=== PATIENT | female | born 1980 | race Caucasian/White ===

== ENCOUNTER 2016-12-25 19:07 | Inpatient (IN) | payer OTHER ==
[2016-12-25 19:31] VITALS: BMI 38.7
--- NOTE | 2016-12-25 19:47 | PDOC ---
History of Present Illness - General History Source: Patient Exam Limitations: No Limitations - History of Present Illness Initial Comments: 12/25/16 19:59 The patient is a 36 year old female with significant past medical history of DVT and PCOS who presents to the ED with a week of left leg pain. Patient describes pain as soreness and tightness. She states her pain initially began as muscle tightness near the buttocks and radiated down to the inner thigh of her left leg. She denies any trauma to the area, falling, or strenuous physical activity. Patient has a h/o of DVT x2, last DVT was last year. 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 She is on heparin 10,000 units BID. She states her symptoms are consistent with her previous DVT in the past. Patient denies diaphoresis, lightheadedness, chest pain, SOB, leg swelling, jaw pain, shoulder pain, arm pain, nausea, and vomiting. Patient gave 1 month ago and is currently breast feeding. The patient denies fever, chills, cough, abdominal pain and diarrhea. Allergies: NKDA Social History: No alcohol, tobacco, or drug use reported. Past Surgical History: None reported PROFESSOR/NURSE ANESTHETIST: Dr. Barroso Military Source Operations Specialist: Dr. Miles in [employer] <Mindi Mclaughlin - Last Filed: 12/25/16 20:58> <Narciso Harden - Last Filed: 12/25/16 21:01> - General Chief Complaint: Pain, Acute Stated Complaint: BLOOD CLOT ON RT LEG Time Seen by Provider: 12/25/16 19:40 Past History <Mindi Mclaughlin - Last Filed: 12/25/16 20:58> - Past Medical History Asthma: No Cancer: No Cardiac Disorders: No DVT: Yes Diabetes: No HTN: No Seizures: No Thyroid Disease: No - Reproductive History (#): 2 Para: 0 Cervical CA: No Dysfunctional Uterine Bleeding: No Ectopic : No Endometrial CA: No Polycystic Ovaries: Yes Therapeutic (s) & number: No Tubal Ligation: No - Psycho/Social/Smoking Cessation Hx Anxiety: No Suicidal Ideation: No Smoking History: Never smoked Have you smoked in the past 12 months: No Information on smoking cessation initiated: No Hx Alcohol Use: No Drug/Substance Use Hx: No Substance Use Type: None Hx Substance Use Treatment: No <Narciso Harden - Last Filed: 12/25/16 21:01> - Past Medical History Allergies/Adverse Reactions: Allergies Allergy/AdvReac Type Severity Reaction Status Date / Time No Known Allergies Allergy Verified 12/25/16 19:27 Home Medications: Ambulatory Orders Heparin - [(None)] 10,000 unit SQ BID 11/13/16 Vit #108/Iron/FA [ One Tablet] 1 each PO DAILY 11/13/16 Review of Systems - Review of Systems Able to Perform ROS?: Yes Comments:: 12/25/16 20:00 +left leg pain Absent: diaphoresis, fever, chills, cough, lightheadedness, chest pain, SOB, leg swelling, jaw pain, shoulder pain, arm pain, abdominal pain, nausea, vomiting, and diarrhea. <Mindi Mclaughlin - Last Filed: 12/25/16 20:58> *Physical Exam - Vital Signs Last Vital Signs Temp Pulse Resp BP Pulse Ox 98.5 F 87 14 149/85 96 12/25/16 19:28 12/25/16 19:28 12/25/16 19:28 12/25/16 19:28 12/25/16 19:28 <Mindi Mclaughlin - Last Filed: 12/25/16 20:58> - Vital Signs Last Vital Signs Temp Pulse Resp BP Pulse Ox 98.5 F 87 14 149/85 96 12/25/16 19:28 12/25/16 19:28 12/25/16 19:28 12/25/16 19:28 12/25/16 19:28 - Physical Exam General Appearance: Yes: Nourished, Appropriately Dressed. No: Apparent Distress HEENT: positive: Normal ENT Inspection Respiratory/Chest: negative: Respiratory Distress Cardiovascular: positive: Regular Rhythm, Regular Rate Gastrointestinal/Abdominal: positive: Soft. negative: Tender Musculoskeletal: positive: Normal Inspection. negative: CVA Tenderness, Vertebral Tenderness Extremity: positive: Normal Capillary Refill, Normal Inspection, Normal Range of Motion, Tender (medial aspect r thigh. ). negative: Calf Tenderness, Erythema Integumentary: positive: Normal Color Neurologic: positive: Fully Oriented, Alert, Normal Mood/Affect, Normal Response , Motor Strength 5/5 <Narciso Harden - Last Filed: 12/25/16 21:01> ED Treatment Course - RADIOLOGY Radiograph Interpretation: 12/25/16 20:58 US/DUPLEX VASCUL US-1 LEG Radiologist's Impression: The right common femoral vein, superficial femoral vein, popliteal and posterior tibial vein were identified with noncompression and no flow identified. There is also noncompressibility of the greater saphenous and deep femoral vein. Very minimal flow is seen in the posterior tibial vein on the color Doppler images. No Stephens's cyst is identified in the popliteal fossa. Impression: Findings consistent with deep venous thromboses involving the right common femoral through posterior tibial vein. There is also venous thromboses involving the greater saphenous and deep femoral vein. Case discussed with Dr. Narciso Jerez, emergency room attending physician <Mindi Mclaughlin - Last Filed: 12/25/16 20:58> - RADIOLOGY Radiology Studies Ordered: Category Date Time Status DUPLEX VASCUL US-1 LEG [US] Stat Ultrasound 12/25/16 19:45 Ordered <Narciso Harden - Last Filed: 12/25/16 21:01> *DC/Admit/Observation/Transfer - Attestations Scribe Attestion: 12/25/16 20:00 Documentation prepared by Mindi Mclaughlin, acting as medical records field technician for Narciso Harden MD <Mindi Mclaughlin - Last Filed: 12/25/16 20:58> - Discharge Dispostion Admit: Yes <Narciso Harden - Last Filed: 12/25/16 21:01> Diagnosis at time of Disposition: Deep vein thrombosis (DVT) Qualifiers: DVT location: lower extremity Affected thrombotic vein of extremity: femoral Laterality: right Chronicity: acute Qualified Code(s): I82.411 - Acute embolism and thrombosis of right femoral vein - Discharge Dispostion Condition at time of disposition: Good
--- NOTE | 2016-12-25 20:59 | PN ---
<Molly Hobson - Last Filed: 12/25/16 20:59> Teaching Attending Note Name of Resident: Mindi Katz ATTENDING PHYSICIAN STATEMENT I saw and evaluated the patient. I reviewed the resident's note and discussed the case with the resident. I agree with the resident's findings and plan as documented. SUBJECTIVE: OBJECTIVE: ASSESSMENT AND PLAN: <DwainCyn - Last Filed: 12/26/16 00:12> Teaching Attending Note ATTENDING PHYSICIAN STATEMENT I saw and evaluated the patient. I reviewed the resident's note and discussed the case with the resident. I agree with the resident's findings and plan as documented. SUBJECTIVE: The patient is a 36 yo F with a PMHx of DVT and PCOS, who presented with R leg pain with associated tightness which initially started near the buttock area and radiates to her R leg. Of note, the patient gave one month ago and is currently breast feeding. 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 The patient denies any chest pain, SOB, headache and dizziness. She denies fever , chills, nausea, vomit, diarrhea and constipation. She denies dysuria, frequency, urgency and hematuria. OBJECTIVE: Physical Last Vital Signs Temp Pulse Resp BP Pulse Ox 98.5 F 87 14 149/85 96 12/25/16 19:28 12/25/16 19:28 12/25/16 19:28 12/25/16 19:28 12/25/16 19:28 GEN: NAD HEENT: NCAT, PERRL CARD: RRR, S1 S2 RESP: CTAB ABD: NT, BWS x4 EXT: - CCE. +RLE calf tenderness. CBCD WBC 10.5 K/mm3 (4.0-10.0) H 12/25/16 21:07 RBC 3.78 M/mm3 (3.60-5.2) 12/25/16 21:07 Hgb 10.6 GM/dL (10.7-15.3) L D 12/25/16 21:07 Hct 32.8 % (32.4-45.2) D 12/25/16 21:07 MCV 86.8 fl (80-96) 12/25/16 21:07 MCHC 32.4 g/dl (32.0-36.0) 12/25/16 21:07 RDW 15.8 % (11.6-15.6) H 12/25/16 21:07 Plt Count 109 K/MM3 (134-434) L 12/25/16 21:07 MPV 7.9 fl (7.5-11.1) 12/25/16 21:07 CMP Sodium 138 mmol/L (136-145) 12/25/16 21:07 Potassium 3.6 mmol/L (3.5-5.1) 12/25/16 21:07 Chloride 100 mmol/L (98-107) 12/25/16 21:07 Carbon Dioxide 27 mmol/L (21-32) 12/25/16 21:07 Anion Gap 11 (8-16) 12/25/16 21:07 BUN 14 mg/dL (7-18) 12/25/16 21:07 Creatinine 0.6 mg/dL (0.55-1.02) 12/25/16 21:07 Calcium 9.3 mg/dL (8.5-10.1) 12/25/16 21:07 Imaging: US/DUPLEX VASCUL US-1 LEG Impression: Findings consistent with deep venous thromboses involving the right common femoral through posterior tibial vein. There is also venous thromboses involving the greater saphenous and deep femoral vein. Case discussed with Dr. Narciso Jerez, emergency room attending physician. ASSESSMENT AND PLAN: The patient is a 36 yo F with PMHx of recurrent DVTs found to have a DVT. 1.) DVT - Continue with heparin - Attempt to switch to Eliquis tomorrow - Otherwise start Coumadin (safe for ) - With hx of multiple DVTs----needs life long anticoagulation. - Check coags in AM - Consider bridging heparin to coumadin if patient unable to take NOAC. Admit to Med-Surg Documentation prepared by Cyn Prakash, acting as medical social worker for Molly Hobson DO.
[2016-12-25 21:16] LABS: BASOPHIL 0.2 % (0-2.0); EOSINOPHIL 0.8 % (0-4.5); MCH 28.1 pg (25.7-33.7); MCHC 32.4 g/dl (32.0-36.0); MEAN CELL VOLUME 86.8 fl (80-96); MEAN PLT VOLUME 7.9 fl (7.5-11.1); NEUTROPHILS 82.1 % (42.8-82.8); PLATELET COUNT 109 K/MM3 (134-434); RDW 15.8 % (11.6-15.6); WHITE BLOOD COUNT 10.5 K/mm3 (4.0-10.0)
[2016-12-25] MEDS ORDERED: HEPARIN INFUSION - 500 ML IVPB ONE (21:20)
[2016-12-25 21:34] LABS: INR 1.33 (0.82-1.09); PROTHROMBIN TIME (PATIENT) 14.7 SEC (9.98-11.88)
[2016-12-25 21:36] LABS: ACTIVATED PTT 32.9 SECONDS (26.9-34.4)
[2016-12-25 21:44] LABS: CALCIUM 9.3 mg/dL (8.5-10.1); CREATININE 0.6 mg/dL (0.55-1.02)
[2016-12-25] MEDS: HEPARIN - 25,000 UNIT in SODIUM CHLORIDE 495 ML IV SCH (22:14)
[2016-12-25] MEDS ORDERED: INSULIN SLIDING SCALE (NOVOLOG) 1 VIAL SQ SCH ×2 (22:30→22:38)
--- NOTE | 2016-12-25 22:30 | HP ---
CHIEF COMPLAINT: DVT of right leg PCP: Denies having one OBGYN: Dr. Barroso Caseworker Intake: Dr. Miles in [facility] HISTORY OF PRESENT ILLNESS: Patient is a 36 year old female with a PMHx of DVT's, PE, PCOS and Prothrombin gene mutation who presents today complaining of right leg pain for the past 2-3 days. Patient reports the pain started in her right buttock area and states it' s as if her "gluts were being pulled." The pain then began radiating to the right thigh and behind the right knee. Patient reports she is unable to fully bend her right leg without pain elicited. Patient states this pain is similar to the pains she had with her previous DVT's. Patient states she had three DVT' s in the last 5 years and was placed on Heparin 10,000mg BID because all other anticoagulation medications failed therapy. Patient recently delivered a baby one month ago and does admit to immobility. She states she only goes from the bed to the couch to feed the baby and has barely moved around. Otherwise, patient denies fever, chills, nausea, vomiting, shortness of breath, chest pain , palpitations, dizziness, headaches, dysuria, frequency. ER course was notable for: (1) Venous doppler (2) Heparin (3) Recent Travel: Denies PAST MEDICAL HISTORY: DVT's, PE, PCOS and Prothrombin gene mutation PAST SURGICAL HISTORY: D&C (one month ago) Social History: Smoking:Denies Alcohol: Denies Drugs: Denies Family History: Father had prothrombin gene mutation Allergies: No Known Allergies Allergy (Verified 12/25/16 19:27) HOME MEDICATIONS: Medication Instructions Recorded Heparin - [(None)] 10,000 unit SQ BID 11/13/16 Vit #108/Iron/FA 1 each PO DAILY 11/13/16 [ One Tablet] REVIEW OF SYSTEMS CONSTITUTIONAL: Absent: fever, chills, diaphoresis, generalized weakness, malaise, loss of appetite, weight change HEENT: Absent: rhinorrhea, nasal congestion, throat pain, throat swelling, difficulty swallowing, mouth swelling, ear pain, eye pain, visual changes CARDIOVASCULAR: Absent: chest pain, syncope, palpitations, irregular heart rate, lightheadedness , peripheral edema RESPIRATORY: Absent: cough, shortness of breath, dyspnea with exertion, orthopnea, wheezing, stridor, hemoptysis GASTROINTESTINAL: Absent: abdominal pain, abdominal distension, nausea, vomiting, diarrhea, constipation, melena, hematochezia GENITOURINARY: Absent: dysuria, frequency, urgency, hesitancy, hematuria, flank pain, genital pain MUSCULOSKELETAL: Right leg pain Absent: myalgia, arthralgia, joint swelling, back pain, neck pain SKIN: Absent: rash, itching, pallor HEMATOLOGIC/IMMUNOLOGIC: Absent: easy bleeding, easy bruising, lymphadenopathy, frequent infections ENDOCRINE: Absent: unexplained weight gain, unexplained weight loss, heat intolerance, cold intolerance NEUROLOGIC: Absent: headache, focal weakness or paresthesias, dizziness, unsteady gait, seizure, mental status changes, bladder or bowel incontinence PSYCHIATRIC: Absent: anxiety, depression, suicidal or homicidal ideation, hallucinations. PHYSICAL EXAMINATION GENERAL: Awake, alert, and fully oriented, in no acute distress. HEENT: Atraumatic normocephalic, PERRL, EOMI, sclera anicteric, conjunctiva clear. Moist mucous membranes. NECK: Normal range of motion, supple without lymphadenopathy, JVD, or masses. LUNGS: Breath sounds equal, clear to auscultation bilaterally. No wheezes, and no crackles. No accessory muscle use. HEART: Regular rate and rhythm, normal S1 and S2 without murmur, rub or gallop. ABDOMEN: Obese, Soft, nontender, not distended, normoactive bowel sounds, no guarding, no rebound, no masses. No hepatomegaly or splenomegaly. EXTREMITIES: (+) calf tenderness of right extremity, (+) Helen's sign of right leg, 2+ pulses, warm, well-perfused. No cyanosis. No clubbing. Cap refill <2 seconds. No peripheral edema. NEUROLOGICAL: No focal deficits, Normal speech. PSYCHIATRIC: Cooperative. Good eye contact. Appropriate mood and affect. SKIN: Warm, dry, normal turgor, no rashes or lesions noted. Laboratory Results - last 24 hr 12/25/16 12/25/16 12/25/16 21:07 21:07 21:07 WBC 10.5 H RBC 3.78 Hgb 10.6 L D Hct 32.8 D MCV 86.8 MCHC 32.4 RDW 15.8 H Plt Count 109 L MPV 7.9 Neutrophils % 82.1 Lymphocytes % 11.6 D Monocytes % 5.3 Eosinophils % 0.8 D Basophils % 0.2 INR 1.33 H D PTT (Actin FS) 32.9 Sodium 138 Potassium 3.6 Chloride 100 Carbon Dioxide 27 Anion Gap 11 BUN 14 Creatinine 0.6 Random Glucose 108 H D Calcium 9.3 US/DUPLEX VASCUL US-1 LEG: Findings consistent with deep venous thromboses involving the right common femoral through posterior tibial vein. There is also venous thromboses involving the greater saphenous and deep femoral vein. ASSESSMENT/PLAN: Patient is 36 year old female with a PMHx of DVT's, PE, PCOS and Prothrombin gene mutation who presented for right leg pain and tenderness. Patient was found to have a DVT and admitted to med/surg for further monitoring and management. DVT -Wells Score: 3 -Continue taking Heparin -Will try to switch to Eliquis in the morning -Will attempt to bridge to Warfarin, as it is safe for , if NOAC's fail -Trend coagulations -Continue to monitor for any signs of bleeding from the Heparin PCOS -Controlled on no medications F/E/N -On no fluids -Electrolytes wnl -Regular diet Prophylaxis -Heparin for DVT -No GI needed Disposition -Full code -Admitted to med/surg. Will attempt to bridge heparin to warfarin. Visit type - Emergency Visit Emergency Visit: Yes ED Registration Date: 12/25/16 Care time: The patient presented to the Emergency Department on the above date and was hospitalized for further evaluation of their emergent condition. - New Patient This patient is new to me today: Yes Date on this admission: 12/25/16 - Critical Care Critical Care patient: No
[2016-12-26 04:44] LABS: BASOPHIL 0.2 % (0-2.0); EOSINOPHIL 1.4 % (0-4.5); MCH 28.1 pg (25.7-33.7); MCHC 32.4 g/dl (32.0-36.0); MEAN CELL VOLUME 86.5 fl (80-96); MEAN PLT VOLUME 8.3 fl (7.5-11.1); NEUTROPHILS 72.7 % (42.8-82.8); PLATELET COUNT 106 K/MM3 (134-434); RDW 15.4 % (11.6-15.6); WHITE BLOOD COUNT 10.1 K/mm3 (4.0-10.0)
[2016-12-26] MEDS ORDERED: HEPARIN NA (PORCINE) 5,000 UNITS/ML 1ML VIAL IVPUSH PRN (06:47)
[2016-12-26] MEDS: INSULIN SLIDING SCALE (NOVOLOG) 1 VIAL SQ SCH ×2 (06:50→16:35)
[2016-12-26] MEDS: HEPARIN - 25,000 UNIT in SODIUM CHLORIDE 495 ML IV SCH ×3 (06:56→22:37)
[2016-12-26] MEDS ORDERED: OXYCODONE/APAP 5/325MG COMBO TABLET PO PRN (11:15)
[2016-12-26] MEDS: oxyCODONE HCL 5 MG TABLET PO PRN ×2 (11:53→20:52)
[2016-12-26] MEDS: ACETAMINOPHEN 325 MG TABLET (FP) PO PRN ×2 (11:53→20:53)
--- NOTE | 2016-12-26 15:08 | PN ---
Physical Exam: SUBJECTIVE: Patient seen and examined at bedside, complains of discomfort and pain to the back and right lower extremity. Denies chest pain, SOB, fever, sweats, chills, n/v/d/c. OBJECTIVE: Vital Signs Period Temp Pulse Resp BP Sys/Dominguez Pulse Ox Last 24 Hr 97.8 F-98.4 F 67-81 18-20 118-138/64-77 98-98 GENERAL: The patient is awake, alert, and fully oriented, in no acute distress. HEAD: Normal with no signs of trauma. EYES: PERRL, extraocular movements intact, sclera anicteric, conjunctiva clear. No ptosis. LUNGS: Breath sounds equal, clear to auscultation bilaterally, no wheezes, no crackles, no accessory muscle use. HEART: Regular rate and rhythm, S1, S2 without murmur, rub or gallop. ABDOMEN: Obese. Soft, nontender, nondistended, normoactive bowel sounds, no guarding, no rebound, no hepatosplenomegaly, no masses. EXTREMITIES: 1+ pulses to b/l dorsalis pedis, cool to the right calf, and lateral thigh, warmth, erythema, tenderness to the medial thigh. Right LE greater than left LE. NEUROLOGICAL: Cranial nerves II through XII grossly intact. Normal speech, gait not observed. PSYCH: Normal mood, normal affect. SKIN: Warm, dry, normal turgor, no rashes or lesions noted. CBCD WBC 10.1 K/mm3 (4.0-10.0) H 12/26/16 04:20 RBC 3.54 M/mm3 (3.60-5.2) L 12/26/16 04:20 Hgb 9.9 GM/dL (10.7-15.3) L 12/26/16 04:20 Hct 30.6 % (32.4-45.2) L 12/26/16 04:20 MCV 86.5 fl (80-96) 12/26/16 04:20 MCHC 32.4 g/dl (32.0-36.0) 12/26/16 04:20 RDW 15.4 % (11.6-15.6) 12/26/16 04:20 Plt Count 106 K/MM3 (134-434) L 12/26/16 04:20 MPV 8.3 fl (7.5-11.1) 12/26/16 04:20 CMP Sodium 138 mmol/L (136-145) 12/25/16 21:07 Potassium 3.6 mmol/L (3.5-5.1) 12/25/16 21:07 Chloride 100 mmol/L (98-107) 12/25/16 21:07 Carbon Dioxide 27 mmol/L (21-32) 12/25/16 21:07 Anion Gap 11 (8-16) 12/25/16 21:07 BUN 14 mg/dL (7-18) 12/25/16 21:07 Creatinine 0.6 mg/dL (0.55-1.02) 12/25/16 21:07 Calcium 9.3 mg/dL (8.5-10.1) 12/25/16 21:07 Active Medications Generic Name Dose Route Start Last Admin Trade Name Freq PRN Reason Stop Dose Admin Acetaminophen 650 mg 12/26/16 11:22 12/26/16 11:53 Tylenol - PO 650 mg Q6H PRN Administration PAIN 6-10 Heparin Sodium (Porcine) 5,000 unit 12/26/16 06:47 12/26/16 06:55 Heparin - IVPUSH 5,000 unit PRN PRN Administration Heparin Sodium (Porcine) 1,000 unit 12/26/16 06:47 Heparin - IVPUSH PRN PRN Heparin Sodium (Porcine) 25, 500 mls @ 20 mls/hr 12/25/16 21:00 12/26/16 06:56 000 unit/ Sodium Chloride IV 23 mls/hr TITR EUGENE Administration Protocol 1,000 UNIT/HR Insulin Aspart 1 vial 12/25/16 22:39 12/26/16 06:50 Novolog Vial Sliding Scale - SQ Not Given BIDAC EUGENE Protocol Oxycodone HCl 10 mg 12/26/16 11:22 12/26/16 11:53 Roxicodone - PO 10 mg Q6H PRN Administration PAIN 6-10 Imaging: US/Duplex Vascular US findings: - Deep venous thromboses involving the right common femoral through posterior tibial vein. - Venous thromboses involving greater saphenous and deep femoral vein. ASSESSMENT/PLAN: This is a 36 year old female with a PMHx of DVT (2011, 2015), PE, PCOS, Prothrombin gene mutation, who presented to the ED with pain to her right thigh. Patient found to have DVT on vascular ultrasound. Plan 1) DVT of RLE - US findings described above - Continue heparin gtt - Trend PTT - goal 60-80 - Pain management - oxycodone 10 mg PO q 6 hours PRN for pain 6-10 - Hematology consult requested - discussed with Dr. Jacobs, patient is candidate for IVC filter and/or thombectomy; discussed with patient, she is hesitant to undergo any procedure at this time; will discuss further with her and with Drs. Lopez/Raquel 2) s/p vaginal delivery and D&C for retained placenta - Obtained medical records from patient's BREWER HELPER DO Lisbeth Barroso - Dr. Barroso prescribed heparin BID during and while breast feeding - Will need to address long-term anticoagulation options - Patient will also need to consider long-term contraception options with Dr. Barroso 2) F/E/N - Regular Diet - No fluids - Electrolytes - replete as indicated - Multivitamin QD 3) Prophylaxis - Continue Heparin drip - Physical therapy, early ambulation 4) Disposition - continue with inpatient care - Full code Visit type - Emergency Visit Emergency Visit: Yes ED Registration Date: 12/25/16 Care time: The patient presented to the Emergency Department on the above date and was hospitalized for further evaluation of their emergent condition. - New Patient This patient is new to me today: Yes Date on this admission: 12/26/16 - Critical Care Critical Care patient: No
[2016-12-26] MEDS ORDERED: HEPARIN INFUSION - 500 ML IVPB ONE (18:34)
--- NOTE | 2016-12-26 18:44 | PN ---
Progress Note (short form) - Note Progress Note: Consult dictated 36 year old female 2011- while on control for polycystic ovary syndrome developed RLE DVT. Patient treated with 9 months of a/c with coumadin. Discovered to have Prothrombin Gene [id number] gene mutation at that time. May-2016 -- while on Lovenox -40 mg subq daily prophylaxis while , developed once again RLE DVT. Continued on FIXED DOSE of heparin--10,000 units BID through and delivered November 21. Had retained placenta, and had D & C on same day after delivery. Was maintained on fixed dose of 10,000 units BID . December 22- developed RLE swelling and presented now to ER with extensive DVT RLE involving right common femoral vein, superficial femoral vein,popliteal and posterior tibial veins in addition to the greater saphenous and deep femoral vein. Currently on IV heparin drip with platelet count 106K --was 108K on admission. In [facility],2006: [id number] [phone] Zarina Brown et al "Comparison of Fixed dose weight - adjusted unfractionated heparin and low molecular weight heparin for acute treatment of venous thromboembolism a review of multiple studies involving close to 700 patients using an initial fixed dose of heparin of 333U/kg followed by 250 U/kg resulted in a comparable recurrent DVT risk and bleeding risk similar to IV heparin. Recurrence at 3 months was 3.8% and bleeding risk - 1.1%. Since patient weighs 218 lbs this would suggest a fixed dose of heparin of 25, 000 units q12 h. (Patient was receiving 10,00 units q12H) The recurrece on heparin may therefore be related to an underdosing. As the patient is nursing, coumadin, and the NOAC's cannot be given. LMWH would be an option, but previously , LMWH ( lovenox) was too expensive for her to afford. After nursing patient can be bridged to coumadin or a NOAC for lifelong treatment. Of concern is the thrombocytopenia. HIT antibody and HANY will be obtained and need to be monitored. One last note, although the patient father had DVT's, he also had CAD and bypass surgery, It is unclear if he indeed has a prothrombin gene mutation or rather vascular events from cardiac disease..
[2016-12-26] MEDS ORDERED: PT OWN MED DRAWER 7, Y5N ONE (19:33)
--- NOTE | 2016-12-26 19:34 | CONS ---
DATE OF CONSULTATION: DATE OF DICTATION: 12/26/2016 HISTORY OF PRESENT ILLNESS: This 36-year-old female presented to the emergency room with an extensive DVT involving the right common femoral through posterior tibial veins. It included the superficial femoral, popliteal, and posterior tibial vein. Also involvement of the greater saphenous and deep femoral vein. The patient was placed on heparin, is currently on IV heparin. Patient has a history in 2011 of being on control pills, at which time she developed a DVT of the right lower extremity. She was found at that time to have a prothrombin gene [id number] mutation, presumably it is heterozygous rather than homozygous, although this is uncertain. The patient was thereafter treated with anticoagulation with Coumadin for 9 months, and then this was discontinued. In 2015, the patient while on low molecular weight heparin, i.e. Lovenox, during 40 mg daily, once again developed a DVT of the right lower extremity. Subsequently, the patient was placed on a fixed dose of heparin 10,000 units twice daily and carried to term and delivered on November 21, 2016. Patient now enters once again with a DVT extensively of the right lower extremity. In essence then since 2011 this is the patient's 3rd DVT which the patient has developed. The 1st DVT occurred while the patient was on control pills to try and regulate her polycystic ovary disease. The 2nd DVT which developed while the patient was occurred while she was on low molecular weight heparin, i.e. Lovenox, 40 mg, and the current DVT occurred 1 month . It should be noted that enhances the risk of DVT and vascular events in patients who have prothrombin gene deficiency. Patient denies current medicine but for fixed dose of heparin 10,000 units b.i.d. which had been given as well as pre vitamins. PAST SURGICAL HISTORY: Includes normal vaginal delivery and a D&C for some retained placenta on the day of delivery November 21. SOCIAL HISTORY: The patient is a nonsmoker, rare social drinker, who works as a casino cage cashier. Denies industrial exposures, denies drugs. ALLERGIES: There are no known allergies. FAMILY HISTORY: Includes father with heart disease, coronary artery bypass as well as vascular events with DVTs. It is unclear if the patient's father has a prothrombin gene mutation. REVIEW OF SYSTEMS: Head: Patient denies headaches. Eyes: No diplopia. Nose: No epistaxis. Oral cavity: No dysphagia, odynophagia. Respiratory: No cough, sputum, shortness of breath, dyspnea. The patient is currently . It should be noted as well that the patient was placed on a fixed dose of heparin because her insurance company deemed that the course of Lovenox therapy would be prohibitive for her income. Gastrointestinal: The patient denies nausea, vomiting, diarrhea, constipation, melena. Genitourinary: No dysuria, hematuria, pyuria. Musculoskeletal: No back or bone pain. Extremity: Right lower extremity swelling, edema, pain up to thighs, status post DVT. Neurologic: No significant symptoms. CURRENT PHYSICAL EXAMINATION: Vital signs: Blood pressure 118/76, pulse 78, respiratory rate 20, afebrile. HEENT: MORTEZA, EOM intact. Oropharynx unremarkable. Papillated tongue. Neck: Supple. Lungs: Relatively clear to percussion and auscultation. Cardiac: Regular rhythm. Breasts: No dominant masses. Abdomen: Soft. No masses. No organomegaly. Extremities: Right lower extremity, swollen, edematous, negative Helen sign, swelling of entire right leg to thigh. LABORATORY: WBC 10.1, hematocrit 30.6, platelets 106,000, presented with 109, 000. IMPRESSION: A 36-year-old who has a history of 3 vascular events with deep vein thromboses since 2011. Initial episode on control pills occurred in 2011. At that time, the patient was found to have a prothrombin gene [id number] abnormality. She was on anticoagulation with Coumadin for 9 months. The patient while in May 2016 on low molecular weight heparin, with a dosage of Lovenox 40 mg, developed a 2nd deep vein thrombosis in the right lower extremity. She was subsequently changed to fixed dose of heparin 10,000 units b.i.d. The patient delivered on November 21, and on the day of delivery had retained placenta and had a dilation and curettage. on 10,000 units b.i.d. of heparin, the patient developed an extensive DVT of the right lower extremity with involvement of the common femoral, superficial femoral, popliteal, posterior tibial, greater saphenous and deep femoral veins. The patient is currently on heparin via infusion. Laboratory of concern reveals initial platelet count of 109,000, currently 106,000, with WBC 10.1, hematocrit 30.6, 72 polycytes. PTT is 56. Chemistries: 138 sodium, potassium 3.6, chloride 100 , CO2 of 27, BUN 14, creatinine 0.6. There is a review in [employer] 2006, volume 296, number 8, page 935, by Zarina Brown et al looking at comparison of fixed dose weight adjusted unfractionated heparin on low molecular weight heparin for acute treatment of venous thromboembolism. In essence, the fixed dose of heparin was initially 333 units per kilogram followed by 250 units per kilogram every 12 hours. In this study of 345 patients, there was a 3.8% difference of venous thromboembolism and a 1.1% incidence of bleeding on this dose. The current dose of heparin of 10,000 units fixed dose b.i.d. is therefore suboptimal. Based upon Zarina article, the patient should be receiving 25,000 units twice daily as a fixed dose, rather than 10,000 units twice daily. As the patient is , Coumadin cannot be administered and the NOAC's cannot be administered. As Lovenox is prohibited because of course the patient will require heparin. Of concern is the platelet count of 106,000 in the setting of heparin, raising the possibility of HIT. HIT antibodies will be obtained, and serotonin releasing assay for HIT will also be obtained. In the interim, intravenous heparin via standard weight based dosing and PTT should be continued. EDDIE ESTEVEZ M.D. KEN[facility]ATTA/[id number] MTDD
[2016-12-27] MEDS: INSULIN SLIDING SCALE (NOVOLOG) 1 VIAL SQ SCH ×2 (06:42→17:59)
[2016-12-27] MEDS: oxyCODONE HCL 5 MG TABLET PO PRN (06:48)
[2016-12-27] MEDS: HEPARIN NA (PORCINE) 5,000 UNITS/ML 1ML VIAL IVPUSH PRN ×2 (11:00→19:04)
[2016-12-27 12:52] LABS: INR 1.27 (0.82-1.09)
[2016-12-27 13:32] LABS: BASOPHIL 0.3 % (0-2.0); EOSINOPHIL 2.3 % (0-4.5); MCH 28.2 pg (25.7-33.7); MCHC 32.4 g/dl (32.0-36.0); MEAN PLT VOLUME 7.6 fl (7.5-11.1); NEUTROPHILS 73.4 % (42.8-82.8); PLATELET COUNT 149 K/MM3 (134-434); RDW 15.6 % (11.6-15.6); WHITE BLOOD COUNT 10.3 K/mm3 (4.0-10.0)
[2016-12-27 14:10] LABS: ALBUMIN 3.2 g/dl (3.4-5.0); ANION GAP 12 (8-16); CALCIUM 8.7 mg/dL (8.5-10.1); CO2 31 mmol/L (21-32); CREATININE 0.7 mg/dL (0.55-1.02); GLUCOSE,RANDOM 105 mg/dL (74-106); MAGNESIUM 1.9 mg/dL (1.8-2.4); SGOT/AST 10 U/L (15-37); SGPT/ALT 15 U/L (12-78); TOT PROT 7.9 g/dl (6.4-8.2)
[2016-12-27 14:11] LABS: ALK PHOS 76 U/L (45-117)
--- NOTE | 2016-12-27 15:08 | PN ---
Physical Exam: SUBJECTIVE: Patient seen and examined. Slightly more mobility in right leg, has been able to dangle from bedside. Still painful. OBJECTIVE: Vital Signs Period Temp Pulse Resp BP Sys/Dominguez Pulse Ox Last 24 Hr 98.2 F-99.4 F 66-84 18-20 113-128/61-79 98 GENERAL: The patient is awake, alert, and fully oriented, in no acute distress. HEAD: Normal with no signs of trauma. EYES: PERRL, extraocular movements intact, sclera anicteric, conjunctiva clear. No ptosis. LUNGS: Breath sounds equal, clear to auscultation bilaterally, no wheezes, no crackles, no accessory muscle use. HEART: Regular rate and rhythm, S1, S2 without murmur, rub or gallop. ABDOMEN: Soft, nontender, nondistended, normoactive bowel sounds, no guarding, no rebound LOWER EXTREMITIES: 2+ pulses, warm, well-perfused; right leg is swollen, no erythema, warm to touch NEUROLOGICAL: Cranial nerves II through XII grossly intact. Normal speech, gait not observed. PSYCH: Normal mood, normal affect. SKIN: Warm, dry, normal turgor, no rashes or lesions noted Laboratory Results - last 24 hr 12/26/16 12/27/16 12/27/16 16:35 05:52 06:40 WBC RBC Hgb Hct MCV MCHC RDW Plt Count MPV Neutrophils % Lymphocytes % Monocytes % Eosinophils % Basophils % INR PTT (Actin FS) 43.8 H Sodium Potassium Chloride Carbon Dioxide Anion Gap BUN Creatinine Creat Clearance w eGFR POC Glucometer 123 100 Random Glucose Calcium Magnesium Total Bilirubin AST ALT Alkaline Phosphatase Total Protein Albumin 12/27/16 12/27/16 12/27/16 12:42 13:20 13:20 WBC 10.3 H RBC 3.77 Hgb 10.6 L Hct 32.7 MCV 87.0 MCHC 32.4 RDW 15.6 Plt Count 149 D MPV 7.6 Neutrophils % 73.4 Lymphocytes % 18.3 Monocytes % 5.7 Eosinophils % 2.3 Basophils % 0.3 INR 1.27 H PTT (Actin FS) Sodium 138 Potassium 3.3 L Chloride 95 L Carbon Dioxide 31 Anion Gap 12 BUN 12 Creatinine 0.7 Creat Clearance w eGFR > 60 POC Glucometer Random Glucose 105 Calcium 8.7 Magnesium 1.9 Total Bilirubin 1.0 D AST 10 L D ALT 15 D Alkaline Phosphatase 76 D Total Protein 7.9 Albumin 3.2 L Imaging: US: deep venous thromboses involving the right common femoral through posterior tibial vein; venous thromboses involving greater saphenous and deep femoral vein ASSESSMENT/PLAN: 36 year-old female with a PMH of DVT (2011, 2015), PE, PCOS, prothrombin gene mutation, admitted for RLE DVT. ht thigh. Patient found to have DVT on vascular ultrasound. Plan 1) DVT of RLE --on heparin drip --platelets increased 106-->149, less concerning for HIT --this is patient's third DVT; discussed at length with Dr. Lopez and reviewed his note; discussed options with patient; she has made a thoughtful decision to stop (she has been weaning anyway, her breasts are not engorged, and she is making very little milk). She would like to go on coumadin. She was on coumadin in 2011 for 9 months and she said she did very well on it and found it easy to adhere to the regimen --will discuss with Dr. Lopez s/p vaginal delivery and D&C for retained placenta - Obtained medical records from patient's RESERVATION MANAGER DO Lisbeth Barroso - Dr. Barroso prescribed heparin BID during and while breast feeding - Patient will also need to consider long-term contraception options with Dr. Barroso and with her regular lamp cleaner street light Dr. Miles 2) F/E/N - Regular Diet - No fluids - Electrolytes - replete as indicated - Multivitamin QD 3) Prophylaxis - Continue Heparin drip - Physical therapy, early ambulation 4) Disposition - continue with inpatient care - Full code Visit type - Emergency Visit Emergency Visit: Yes ED Registration Date: 12/25/16 Care time: The patient presented to the Emergency Department on the above date and was hospitalized for further evaluation of their emergent condition. - New Patient This patient is new to me today: No - Critical Care Critical Care patient: No
--- NOTE | 2016-12-27 18:29 | PN ---
Progress Note (short form) - Note Progress Note: Patient seen and examined Denies any complaints Last Vital Signs Temp Pulse Resp BP Pulse Ox 98.1 F 84 18 131/66 98 12/27/16 17:14 12/27/16 17:14 12/27/16 17:14 12/27/16 17:14 12/26/16 21:00 Cor: RSR, No murmurs, No gallops Lungs: Clear to P&A Abd: Soft, Normal bowel sounds, No organomegaly Ext:RLE 2-3+ swelling compared to left Abnormal Lab Results 12/27/16 12/27/16 12/27/16 05:52 12:42 13:20 WBC 10.3 H Hgb 10.6 L INR 1.27 H PTT (Actin FS) 43.8 H Potassium Chloride AST Albumin 12/27/16 13:20 WBC Hgb INR PTT (Actin FS) Potassium 3.3 L Chloride 95 L AST 10 L D Albumin 3.2 L Current Medications Acetaminophen (Tylenol -) 650 mg PO Q6H PRN PRN Reason: PAIN 6-10 Last Admin: 12/26/16 20:53 Dose: 650 mg Heparin Sodium (Porcine) (Heparin -) 5,000 unit IVPUSH PRN PRN Last Admin: 12/26/16 06:55 Dose: 5,000 unit Heparin Sodium (Porcine) (Heparin -) 1,000 unit IVPUSH PRN PRN Last Admin: 12/27/16 11:00 Dose: 1,000 unit Heparin Sodium (Porcine) 25, (000 unit/ Sodium Chloride) 500 mls @ 20 mls/hr IV TITR EUGENE; 1,000 UNIT/HR PRN Reason: Protocol Last Titration: 12/27/16 11:06 Dose: 1,250 unit/hr Insulin Aspart (Novolog Vial Sliding Scale -) 1 vial SQ BIDAC EUGENE PRN Reason: Protocol Last Admin: 12/27/16 17:59 Dose: Not Given A/P 36 y/o patient with RLE DVT while on heparin [id number] U SC bid Now on heparin drip platelets improving time frame unlikely to be HIT/t but being ruled out Discussed various anticoagulation options with patient. Due to her financial concerns she wants to pursue coumadin. She understands the downsides as she is breast feeding and interactions wioth diet/meds, need for bridging etc. She prefers that and says she will stop breast feeding as she has already been weaning off the baby. will consult policy specialist ---extension [phone] will bridge heparin to coumadin and overlap for 24-48hrs. once therapeutic. will start coumadin once platelets recover fully . discussed with hospitalist
[2016-12-27] MEDS: HEPARIN - 25,000 UNIT in SODIUM CHLORIDE 495 ML IV SCH ×2 (19:07→23:14)
[2016-12-27] MEDS: ACETAMINOPHEN 325 MG TABLET (FP) PO PRN (21:51)
[2016-12-28] MEDS: HEPARIN NA (PORCINE) 5,000 UNITS/ML 1ML VIAL IVPUSH PRN ×2 (00:39→09:55)
[2016-12-28] MEDS: HEPARIN - 25,000 UNIT in SODIUM CHLORIDE 495 ML IV SCH ×3 (00:42→22:27)
[2016-12-28] MEDS: INSULIN SLIDING SCALE (NOVOLOG) 1 VIAL SQ SCH ×2 (06:12→18:41)
[2016-12-28 07:08] LABS: BASOPHIL 0.2 % (0-2.0); EOSINOPHIL 1.2 % (0-4.5); MCH 28.3 pg (25.7-33.7); MCHC 32.9 g/dl (32.0-36.0); MEAN CELL VOLUME 85.8 fl (80-96); MEAN PLT VOLUME 7.6 fl (7.5-11.1); NEUTROPHILS 78.3 % (42.8-82.8); PLATELET COUNT 138 K/MM3 (134-434); RDW 15.1 % (11.6-15.6); WHITE BLOOD COUNT 10.1 K/mm3 (4.0-10.0)
[2016-12-28 07:17] LABS: INR 1.24 (0.82-1.09); PROTHROMBIN TIME (PATIENT) 13.7 SEC (9.98-11.88)
[2016-12-28 07:42] LABS: ALBUMIN 2.8 g/dl (3.4-5.0); ANION GAP 10 (8-16); CALCIUM 8.6 mg/dL (8.5-10.1); CO2 31 mmol/L (21-32); GLUCOSE,RANDOM 91 mg/dL (74-106); MAGNESIUM 2.1 mg/dL (1.8-2.4)
[2016-12-28 07:46] LABS: ALK PHOS 62 U/L (45-117); BILIRUBIN,TOTAL 0.9 mg/dL (0.2-1.0); CREATININE 0.4 mg/dL (0.55-1.02); SGOT/AST 8 U/L (15-37); SGPT/ALT 13 U/L (12-78); TOT PROT 6.6 g/dl (6.4-8.2)
[2016-12-28] MEDS: POTASSIUM CHLORIDE TABS 20 MEQ TABLET.ER (FP) PO SCH ×2 (09:56→19:09)
[2016-12-28] MEDS ORDERED: INSULIN (NOVOLOG) ASPART 100 UNITS/ML 10ML VIAL ONE (12:49)
[2016-12-28] MEDS ORDERED: HEPARIN INFUSION - 500 ML IVPB ONE (14:34)
[2016-12-28] MEDS ORDERED: PT OWN MED DRAWER 7, Y5N ONE (14:43)
--- NOTE | 2016-12-28 17:54 | PN ---
Physical Exam: SUBJECTIVE: Patient seen and examined. Right leg feels better, some residual pain in right groin. Has been walking. OBJECTIVE: Vital Signs Period Temp Pulse Resp BP Sys/Dominguez Pulse Ox Last 24 Hr 97.6 F-98.5 F 74-85 18-20 114-137/50-72 GENERAL: The patient is awake, alert, and fully oriented, in no acute distress. HEAD: Normal with no signs of trauma. EYES: PERRL, extraocular movements intact, sclera anicteric, conjunctiva clear. No ptosis. LUNGS: Breath sounds equal, clear to auscultation bilaterally, no wheezes, no crackles, no accessory muscle use. HEART: Regular rate and rhythm, S1, S2 without murmur, rub or gallop. ABDOMEN: Soft, nontender, nondistended, normoactive bowel sounds, no guarding, no rebound LOWER EXTREMITIES: 2+ pulses, warm, well-perfused; RLE swelling improved, no erythema, no warmth NEUROLOGICAL: Cranial nerves II through XII grossly intact. Normal speech, gait not observed. PSYCH: Normal mood, normal affect. SKIN: Warm, dry, normal turgor, no rashes or lesions noted Laboratory Results - last 24 hr 12/27/16 12/27/16 12/27/16 17:00 17:57 23:30 WBC RBC Hgb Hct MCV MCHC RDW Plt Count MPV Neutrophils % Lymphocytes % Monocytes % Eosinophils % Basophils % INR PTT (Actin FS) 43.6 H 47.9 H Sodium Potassium Chloride Carbon Dioxide Anion Gap BUN Creatinine Creat Clearance w eGFR POC Glucometer 110 Random Glucose Calcium Magnesium Total Bilirubin AST ALT Alkaline Phosphatase Total Protein Albumin 12/28/16 12/28/16 12/28/16 06:00 06:00 06:00 WBC 10.1 H RBC 3.36 L Hgb 9.5 L D Hct 28.8 L MCV 85.8 MCHC 32.9 RDW 15.1 Plt Count 138 MPV 7.6 Neutrophils % 78.3 Lymphocytes % 14.5 D Monocytes % 5.8 Eosinophils % 1.2 Basophils % 0.2 INR 1.24 H PTT (Actin FS) Sodium 138 Potassium 3.4 L Chloride 97 L Carbon Dioxide 31 Anion Gap 10 BUN 11 Creatinine 0.4 L D Creat Clearance w eGFR > 60 POC Glucometer Random Glucose 91 Calcium 8.6 Magnesium 2.1 Total Bilirubin 0.9 AST 8 L ALT 13 Alkaline Phosphatase 62 Total Protein 6.6 Albumin 2.8 L 12/28/16 12/28/16 12/28/16 06:00 16:28 16:34 WBC RBC Hgb Hct MCV MCHC RDW Plt Count MPV Neutrophils % Lymphocytes % Monocytes % Eosinophils % Basophils % INR PTT (Actin FS) 44.4 H 55.9 H Sodium Potassium Chloride Carbon Dioxide Anion Gap BUN Creatinine Creat Clearance w eGFR POC Glucometer 101 Random Glucose Calcium Magnesium Total Bilirubin AST ALT Alkaline Phosphatase Total Protein Albumin Active Medications Generic Name Dose Route Start Last Admin Trade Name Freq PRN Reason Stop Dose Admin Acetaminophen 650 mg 12/26/16 11:22 12/27/16 21:51 Tylenol - PO 650 mg Q6H PRN Administration PAIN 6-10 Heparin Sodium (Porcine) 5,000 unit 12/26/16 06:47 12/26/16 06:55 Heparin - IVPUSH 5,000 unit PRN PRN Administration Heparin Sodium (Porcine) 1,000 unit 12/26/16 06:47 12/28/16 09:55 Heparin - IVPUSH 1,000 unit PRN PRN Administration Heparin Sodium (Porcine) 25, 500 mls @ 20 mls/hr 12/25/16 21:00 12/28/16 14:45 000 unit/ Sodium Chloride IV 31 mls/hr TITR EUGENE Administration Protocol 1,000 UNIT/HR Insulin Aspart 1 vial 12/25/16 22:39 12/28/16 06:12 Novolog Vial Sliding Scale - SQ Not Given BIDAC [facility] Protocol Warfarin Sodium 5 mg 12/28/16 18:00 Coumadin - PO DAILY@1800 [facility] Imaging: US: deep venous thromboses involving the right common femoral through posterior tibial vein; venous thromboses involving greater saphenous and deep femoral vein ASSESSMENT/PLAN: 36 year-old female with a PMH of DVT (2011, 2015), PE, PCOS, prothrombin gene mutation, admitted for RLE DVT. ht thigh. Patient found to have DVT on vascular ultrasound. DVT of RLE --on heparin drip --platelets increased, less concern for HIT but will wait for HIT and serotonin assays --discussed case with Dr. García; will start coumadin 5mg tonight s/p vaginal delivery and D&C for retained placenta - Obtained medical records from patient's CRATE LINER DO Lisbeth Barroso - Dr. Barroso prescribed heparin BID during and while breast feeding - Patient will also need to consider long-term contraception options with Dr. Barroso and with her regular grain spouter Dr. Miles 2) F/E/N - Regular Diet - No fluids - Electrolytes - replete as indicated - Multivitamin QD 3) Prophylaxis - Continue Heparin drip - Physical therapy, early ambulation 4) Disposition - continue with inpatient care - Full code Visit type - Emergency Visit Emergency Visit: Yes ED Registration Date: 12/25/16 Care time: The patient presented to the Emergency Department on the above date and was hospitalized for further evaluation of their emergent condition. - New Patient This patient is new to me today: No - Critical Care Critical Care patient: No
[2016-12-28] MEDS: WARFARIN NA 5 MG TABLET (UD) PO SCH (18:55)
[2016-12-28] MEDS ORDERED: POTASSIUM CHLORIDE TABS 20 MEQ TABLET.ER (FP) PO ONE (19:00)
--- NOTE | 2016-12-28 22:09 | PN ---
Progress Note (short form) - Note Progress Note: Patient seen and examined Denies any complaints more mobile, less pain afvss Cor: RSR, No murmurs, No gallops Lungs: Clear to P&A Abd: Soft, Normal bowel sounds, No organomegaly Ext:RLE 2-3+ swelling compared to left Abnormal Lab Results 12/27/16 12/28/16 12/29/16 05:52 16:34 06:00 INR 1.27 H PTT (Actin FS) 55.9 H 41.2 H Creatinine AST Albumin Hep-Induced Plt Ab Rapid 0.424 H 12/29/16 08:45 INR PTT (Actin FS) Creatinine 0.4 L AST 9 L Albumin 2.6 L Hep-Induced Plt Ab Rapid Current Medications Acetaminophen (Tylenol -) 650 mg PO Q6H PRN PRN Reason: PAIN 6-10 Last Admin: 12/29/16 04:55 Dose: 650 mg Heparin Sodium (Porcine) (Heparin -) 5,000 unit IVPUSH PRN PRN Last Admin: 12/26/16 06:55 Dose: 5,000 unit Heparin Sodium (Porcine) (Heparin -) 1,000 unit IVPUSH PRN PRN Last Admin: 12/28/16 09:55 Dose: 1,000 unit Heparin Sodium (Porcine) 25, (000 unit/ Sodium Chloride) 500 mls @ 20 mls/hr IV TITR EUGENE; 1,000 UNIT/HR PRN Reason: Protocol Last Admin: 12/29/16 06:45 Dose: 31 mls/hr Insulin Aspart (Novolog Vial Sliding Scale -) 1 vial SQ BIDAC EUGENE PRN Reason: Protocol Last Admin: 12/29/16 06:20 Dose: Not Given Warfarin Sodium (Coumadin -) 5 mg PO DAILY@1800 EUGENE Last Admin: 12/28/16 18:55 Dose: 5 mg A/P 36 y/o patient with RLE DVT while on heparin [id number] U SC bid Now on heparin drip platelets improving time frame unlikely to be HIT/t but being ruled out Discussed various anticoagulation options with patient. Due to her financial concerns she wants to pursue coumadin. She understands the downsides as she is breast feeding and interactions wioth diet/meds, need for bridging etc. She prefers that and says she will stop breast feeding as she has already been weaning off the baby. will consult cardiovascular invasive specialist ---extension [phone] will bridge heparin to coumadin and overlap for 24-48hrs. once therapeutic. will start coumadin once ptt therapeutic at low doses discussed with hospitalist
[2016-12-29] MEDS: ACETAMINOPHEN 325 MG TABLET (FP) PO PRN (04:55)
[2016-12-29] MEDS: INSULIN SLIDING SCALE (NOVOLOG) 1 VIAL SQ SCH ×2 (06:20→18:31)
[2016-12-29] MEDS: HEPARIN - 25,000 UNIT in SODIUM CHLORIDE 495 ML IV SCH ×3 (06:45→23:00)
[2016-12-29 07:06] LABS: INR 1.27 (0.82-1.09)
[2016-12-29 07:09] LABS: ACTIVATED PTT 41.2 SECONDS (26.9-34.4)
[2016-12-29 08:52] LABS: BASOPHIL 0.4 % (0-2.0); EOSINOPHIL 2.1 % (0-4.5); MCH 27.8 pg (25.7-33.7); MCHC 32.1 g/dl (32.0-36.0); MEAN CELL VOLUME 86.5 fl (80-96); MEAN PLT VOLUME 7.6 fl (7.5-11.1); PLATELET COUNT 161 K/MM3 (134-434); RDW 15.6 % (11.6-15.6); WHITE BLOOD COUNT 8.8 K/mm3 (4.0-10.0)
[2016-12-29 09:01] LABS: ALBUMIN 2.6 g/dl (3.4-5.0); ANION GAP 9 (8-16); BILIRUBIN,TOTAL 0.7 mg/dL (0.2-1.0); CALCIUM 8.9 mg/dL (8.5-10.1); CO2 29 mmol/L (21-32); CREATININE 0.4 mg/dL (0.55-1.02); GLUCOSE,RANDOM 96 mg/dL (74-106); SGOT/AST 9 U/L (15-37); SGPT/ALT 12 U/L (12-78); TOT PROT 6.4 g/dl (6.4-8.2)
[2016-12-29 09:02] LABS: ALK PHOS 64 U/L (45-117)
[2016-12-29] MEDS: HEPARIN NA (PORCINE) 5,000 UNITS/ML 1ML VIAL IVPUSH PRN (10:32)
--- NOTE | 2016-12-29 14:36 | PN ---
Progress Note (short form) - Note Progress Note: Patient seen and examined Denies any complaints more mobile, less pain Last Vital Signs Temp Pulse Resp BP Pulse Ox 98.0 F 72 18 116/68 98 12/29/16 10:39 12/29/16 10:39 12/29/16 10:39 12/29/16 10:39 12/29/16 09:00 Cor: RSR, No murmurs, No gallops Lungs: Clear to P&A Abd: Soft, Normal bowel sounds, No organomegaly Ext:RLE 2-3+ swelling compared to left Abnormal Lab Results 12/27/16 12/28/16 12/29/16 05:52 16:34 06:00 RBC Hgb Hct INR 1.27 H PTT (Actin FS) 55.9 H 41.2 H Creatinine AST Albumin Hep-Induced Plt Ab Rapid 0.424 H 12/29/16 12/29/16 08:45 08:45 RBC 3.18 L Hgb 8.8 L Hct 27.5 L INR PTT (Actin FS) Creatinine 0.4 L AST 9 L Albumin 2.6 L Hep-Induced Plt Ab Rapid Current Medications Acetaminophen (Tylenol -) 650 mg PO Q6H PRN PRN Reason: PAIN 6-10 Last Admin: 12/29/16 04:55 Dose: 650 mg Heparin Sodium (Porcine) (Heparin -) 5,000 unit IVPUSH PRN PRN Last Admin: 12/26/16 06:55 Dose: 5,000 unit Heparin Sodium (Porcine) (Heparin -) 1,000 unit IVPUSH PRN PRN Last Admin: 12/29/16 10:32 Dose: 1,000 unit Heparin Sodium (Porcine) 25, (000 unit/ Sodium Chloride) 500 mls @ 20 mls/hr IV TITR EUGENE; 1,000 UNIT/HR PRN Reason: Protocol Last Titration: 12/29/16 10:30 Dose: 1,650 unit/hr Insulin Aspart (Novolog Vial Sliding Scale -) 1 vial SQ BIDAC EUGENE PRN Reason: Protocol Last Admin: 12/29/16 06:20 Dose: Not Given Warfarin Sodium (Coumadin -) 5 mg PO DAILY@1800 EUGENE Last Admin: 12/28/16 18:55 Dose: 5 mg A/P 36 y/o patient with RLE DVT while on heparin [id number] U SC bid Now on heparin drip platelets improved time frame unlikely to be HIT/t. Suspect borderline HIT ab is false +. Await HANY Discussed various anticoagulation options with patient. Due to her financial concerns she wants to pursue coumadin. She understands the downsides as she is breast feeding and interactions with diet/meds, need for bridging etc. She prefers that and says she will stop breast feeding as she has already been weaning off the baby. will consult reading specialist ---extension [phone]. advised her to pump the breasts will bridge heparin to coumadin and overlap for 24-48hrs. once therapeutic. Restart chewable vitamins No e/o active bleeding. check iron studies/B12/ferritin
--- NOTE | 2016-12-29 15:27 | PN ---
Physical Exam: SUBJECTIVE: Patient seen and examined at bedside. Discussed insurance plan and cost of long-term anticoagulation medication. OBJECTIVE: Vital Signs Period Temp Pulse Resp BP Sys/Dominguez Pulse Ox Last 24 Hr 97.8 F-99.9 F 72-90 18-20 110-140/61-78 98-98 GENERAL: The patient is awake, alert, and fully oriented, in no acute distress. HEAD: Normal with no signs of trauma. EYES: PERRL, extraocular movements intact, sclera anicteric, conjunctiva clear. No ptosis. LUNGS: Breath sounds equal, clear to auscultation bilaterally, no wheezes, no crackles, no accessory muscle use. HEART: Regular rate and rhythm, S1, S2 without murmur, rub or gallop. ABDOMEN: Soft, nontender, nondistended, normoactive bowel sounds, no guarding, no rebound LOWER EXTREMITIES: 2+ pulses, warm, well-perfused; RLE swelling continues to improve; no erythema, no warmth NEUROLOGICAL: Cranial nerves II through XII grossly intact. Normal speech, gait not observed. PSYCH: Normal mood, normal affect. SKIN: Warm, dry, normal turgor, no rashes or lesions noted Laboratory Results - last 24 hr 12/27/16 12/28/16 12/28/16 05:52 16:28 16:34 WBC RBC Hgb Hct MCV MCHC RDW Plt Count MPV Neutrophils % Lymphocytes % Monocytes % Eosinophils % Basophils % INR PTT (Actin FS) 55.9 H Sodium Potassium Chloride Carbon Dioxide Anion Gap BUN Creatinine Creat Clearance w eGFR POC Glucometer 101 Random Glucose Calcium Total Bilirubin AST ALT Alkaline Phosphatase Total Protein Albumin Hep-Induced Plt Ab Rapid 0.424 H 12/29/16 12/29/16 12/29/16 05:30 06:00 08:45 WBC 8.8 RBC 3.18 L Hgb 8.8 L Hct 27.5 L MCV 86.5 MCHC 32.1 RDW 15.6 Plt Count 161 MPV 7.6 Neutrophils % 70.0 Lymphocytes % 20.9 D Monocytes % 6.6 Eosinophils % 2.1 Basophils % 0.4 INR 1.27 H PTT (Actin FS) 41.2 H Sodium Potassium Chloride Carbon Dioxide Anion Gap BUN Creatinine Creat Clearance w eGFR POC Glucometer 117 Random Glucose Calcium Total Bilirubin AST ALT Alkaline Phosphatase Total Protein Albumin Hep-Induced Plt Ab Rapid 12/29/16 08:45 WBC RBC Hgb Hct MCV MCHC RDW Plt Count MPV Neutrophils % Lymphocytes % Monocytes % Eosinophils % Basophils % INR PTT (Actin FS) Sodium 141 Potassium 3.8 Chloride 103 Carbon Dioxide 29 Anion Gap 9 BUN 13 Creatinine 0.4 L Creat Clearance w eGFR > 60 POC Glucometer Random Glucose 96 Calcium 8.9 Total Bilirubin 0.7 D AST 9 L ALT 12 Alkaline Phosphatase 64 Total Protein 6.4 Albumin 2.6 L Hep-Induced Plt Ab Rapid Active Medications Generic Name Dose Route Start Last Admin Trade Name Freq PRN Reason Stop Dose Admin Acetaminophen 650 mg 12/26/16 11:22 12/29/16 04:55 Tylenol - PO 650 mg Q6H PRN Administration PAIN 6-10 Heparin Sodium (Porcine) 5,000 unit 12/26/16 06:47 12/26/16 06:55 Heparin - IVPUSH 5,000 unit PRN PRN Administration Heparin Sodium (Porcine) 1,000 unit 12/26/16 06:47 12/29/16 10:32 Heparin - IVPUSH 1,000 unit PRN PRN Administration Heparin Sodium (Porcine) 25, 500 mls @ 20 mls/hr 12/25/16 21:00 12/29/16 10:30 000 unit/ Sodium Chloride IV 1,650 unit/hr TITR EUGENE Titration Protocol 1,000 UNIT/HR Insulin Aspart 1 vial 12/25/16 22:39 12/29/16 06:20 Novolog Vial Sliding Scale - SQ Not Given BIDAC EUGENE Protocol Warfarin Sodium 5 mg 12/28/16 18:00 12/28/16 18:55 Coumadin - PO 5 mg DAILY@1800 EUGENE Administration Imaging: US: deep venous thromboses involving the right common femoral through posterior tibial vein; venous thromboses involving greater saphenous and deep femoral vein ASSESSMENT/PLAN: 36 year-old female with a PMH of DVT (2011, 2015), PE, PCOS, prothrombin gene mutation, admitted for RLE DVT. DVT of RLE --on heparin drip --platelets continue to improve 161k --HIT panel high normal range; still waiting for serotonin assay --discussed case again today with Dr. García; will continue heparin drip until serotonin assay back; continue to dose coumadin --social work is exploring cost of long-term anticoagulation meds with patient's insurance company S/p vaginal delivery and D&C for retained placenta -will need to consider long-term contraception options with Dr. Barroso and regular senior consumer insights consultant Dr. Miles F/E/N Fluids: PO intake adequate Electrolytes: replete as indicated Nutrition: regular diet DVT prophylaxis: on heparin drip Dispo: continues to require inpatient care. Full Code. Visit type - Emergency Visit Emergency Visit: Yes ED Registration Date: 12/25/16 Care time: The patient presented to the Emergency Department on the above date and was hospitalized for further evaluation of their emergent condition. - New Patient This patient is new to me today: No - Critical Care Critical Care patient: No
[2016-12-29] MEDS: WARFARIN NA 5 MG TABLET (UD) PO SCH (18:41)
[2016-12-30] MEDS: ACETAMINOPHEN 325 MG TABLET (FP) PO PRN (02:03)
[2016-12-30] MEDS: INSULIN SLIDING SCALE (NOVOLOG) 1 VIAL SQ SCH ×2 (06:47→16:10)
[2016-12-30 08:28] LABS: INR 1.56 (0.82-1.09); PROTHROMBIN TIME (PATIENT) 17.3 SEC (9.98-11.88)
[2016-12-30 09:35] LABS: FERRITIN 90.209 ng/ml (6.9-282.5); FREE T4 1.18 ng/dl (0.76-1.46); THYROID STIMULATING HORMONE 2.01 uIU/ml (0.358-3.74)
[2016-12-30 11:21] LABS: BASOPHIL 0.4 % (0-2.0); EOSINOPHIL 3.7 % (0-4.5); MCH 27.8 pg (25.7-33.7); MCHC 32.4 g/dl (32.0-36.0); MEAN CELL VOLUME 85.9 fl (80-96); MEAN PLT VOLUME 7.1 fl (7.5-11.1); NEUTROPHILS 68.6 % (42.8-82.8); PLATELET COUNT 192 K/MM3 (134-434); RDW 15.3 % (11.6-15.6)
[2016-12-30] MEDS ORDERED: ENOXAPARIN NA (PORCINE) 100 MG/1 ML DISP.SYRIN SQ SCH (12:00)
--- NOTE | 2016-12-30 12:00 | PN ---
Physical Exam: SUBJECTIVE: Patient seen and examined oob to chair. OBJECTIVE: Vital Signs Period Temp Pulse Resp BP Sys/Dominguez Pulse Ox Last 24 Hr 97.8 F-98.6 F 66-82 16-20 106-143/53-74 98 GENERAL: The patient is awake, alert, and fully oriented, in no acute distress. HEAD: Normal with no signs of trauma. EYES: PERRL, extraocular movements intact, sclera anicteric, conjunctiva clear. No ptosis. LUNGS: Breath sounds equal, clear to auscultation bilaterally, no wheezes, no crackles, no accessory muscle use. HEART: Regular rate and rhythm, S1, S2 without murmur, rub or gallop. ABDOMEN: Soft, nontender, nondistended, normoactive bowel sounds, no guarding, no rebound LOWER EXTREMITIES: 2+ pulses, warm, well-perfused; RLE swelling continues to improve; no erythema, no warmth NEUROLOGICAL: Cranial nerves II through XII grossly intact. Normal speech, gait not observed. PSYCH: Normal mood, normal affect. SKIN: Warm, dry, normal turgor, no rashes or lesions noted Laboratory Results - last 24 hr 12/29/16 12/30/16 12/30/16 16:15 05:39 06:00 WBC RBC Hgb Hct MCV MCHC RDW Plt Count MPV Neutrophils % Lymphocytes % Monocytes % Eosinophils % Basophils % Retic Count 3.34 H D INR PTT (Actin FS) 55.6 H D POC Glucometer 87 Ferritin TSH Free T4 12/30/16 12/30/16 12/30/16 06:00 06:00 06:00 WBC RBC Hgb Hct MCV MCHC RDW Plt Count MPV Neutrophils % Lymphocytes % Monocytes % Eosinophils % Basophils % Retic Count INR 1.56 H PTT (Actin FS) 123.8 H D POC Glucometer Ferritin 90.209 TSH 2.01 Free T4 1.18 12/30/16 10:55 WBC 8.0 RBC 3.41 L Hgb 9.5 L Hct 29.3 L MCV 85.9 MCHC 32.4 RDW 15.3 Plt Count 192 MPV 7.1 L Neutrophils % 68.6 Lymphocytes % 22.0 Monocytes % 5.3 Eosinophils % 3.7 Basophils % 0.4 Retic Count INR PTT (Actin FS) POC Glucometer Ferritin TSH Free T4 Current Medications Generic Name Dose Route Start Last Admin Trade Name Freq PRN Reason Stop Dose Admin Acetaminophen 650 mg 12/26/16 11:22 12/30/16 02:03 Tylenol - PO 650 mg Q6H PRN Administration PAIN 6-10 Enoxaparin Sodium 100 mg 12/30/16 13:00 Lovenox - SQ Q12H [facility] Insulin Aspart 1 vial 12/25/16 22:39 12/30/16 06:47 Novolog Vial Sliding Scale - SQ Not Given BIDAC [facility] Protocol Warfarin Sodium 5 mg 12/28/16 18:00 12/29/16 18:41 Coumadin - PO 5 mg DAILY@1800 EUGENE Administration Imaging: US: deep venous thromboses involving the right common femoral through posterior tibial vein; venous thromboses involving greater saphenous and deep femoral vein ASSESSMENT/PLAN: 36 year-old female with a PMH of DVT (2011, 2015), PE, PCOS, prothrombin gene mutation, admitted for RLE DVT. DVT of RLE --heparin drip stopped, switched to Lovenox 100mg q12h at suggestion of Dr. Ji --platelets continue to improve 192k --HIT panel high normal range; still waiting for serotonin assay --INR 1.56, goal 2-3 --social work is exploring cost of long-term anticoagulation meds with patient's insurance company S/p vaginal delivery and D&C for retained placenta -will need to consider long-term contraception options with Dr. Barroso and regular weight control engineer Dr. Miles F/E/N Fluids: PO intake adequate Electrolytes: replete as indicated Nutrition: regular diet DVT prophylaxis: full-dose lovenox Dispo: continues to require inpatient care. Full Code. Visit type - Emergency Visit Emergency Visit: Yes ED Registration Date: 12/25/16 Care time: The patient presented to the Emergency Department on the above date and was hospitalized for further evaluation of their emergent condition. - New Patient This patient is new to me today: No - Critical Care Critical Care patient: No
[2016-12-30 12:08] LABS: ALBUMIN 2.7 g/dl (3.4-5.0); ALK PHOS 73 U/L (45-117); ANION GAP 10 (8-16); BILIRUBIN,TOTAL 0.4 mg/dL (0.2-1.0); CO2 27 mmol/L (21-32); CREATININE 0.4 mg/dL (0.55-1.02); GLUCOSE,RANDOM 91 mg/dL (74-106); SGOT/AST 12 U/L (15-37); SGPT/ALT 16 U/L (12-78); TOT PROT 6.6 g/dl (6.4-8.2)
--- NOTE | 2016-12-30 13:03 | PN ---
Progress Note (short form) - Note Progress Note: Patient seen in follow up today. No new complaints. Reports that R thigh is less swollen and firm than previously. Meds reviewed. Receiving heparin drip with appropriate dose modifications to maintain PTT therapeutic. Current Medications Acetaminophen (Tylenol -) 650 mg PO Q6H PRN PRN Reason: PAIN 6-10 Last Admin: 12/30/16 02:03 Dose: 650 mg Enoxaparin Sodium (Lovenox -) 100 mg SQ BID EUGENE Insulin Aspart (Novolog Vial Sliding Scale -) 1 vial SQ BIDAC [facility] PRN Reason: Protocol Last Admin: 12/30/16 06:47 Dose: Not Given Warfarin Sodium (Coumadin -) 5 mg PO DAILY@1800 EUGENE Last Admin: 12/29/16 18:41 Dose: 5 mg On examination. Last Vital Signs Temp Pulse Resp BP Pulse Ox 97.8 F 76 16 106/57 98 12/30/16 05:53 12/30/16 09:44 12/30/16 09:44 12/30/16 09:44 12/30/16 09:00 Lying comfortably in bed. Well hydrated, no pallor or icterus. Chest: good AE BL, clear. CVS: S1, S2, no gallop or murmur. Abdomen: soft non-tender, no masses or organomegaly. Neuro: Alert and oriented. R thigh more swollen than L, but extremities perfusing well. INR, PTT INR 1.56 (0.82-1.09) H 12/30/16 06:00 CBC, BMP 12/30/16 10:55 12/30/16 10:55 Assessment: Young female with established history of recurrent RLE DVT, with confirmed prothrombin gene mutation. Now with recurrent event in post- setting, occurring while on unfractionated SC BID heparin at home. Previously did well on warfarin, and agree that resumption of warfarin is warranted, with heparin bridge pending achievement of therapeutic INR for 24-48 hours. Recommend bridging with enoxaparin SC 1mg/kg BID for bridging - easier to administer than IV heparin. May consider May-Thurner, as reversible etiology for her recurrent LE DVT's, if not already considered, albeit usually occurs on L side. Mild anemia noted. Likely iron deficiency. Consider empiric oral iron supplementation.
[2016-12-30] MEDS: ENOXAPARIN NA (PORCINE) 100 MG/1 ML DISP.SYRIN SQ SCH ×2 (14:57→21:29)
[2016-12-30] MEDS: WARFARIN NA 5 MG TABLET (UD) PO SCH (17:42)
[2016-12-31] MEDS: ACETAMINOPHEN 325 MG TABLET (FP) PO PRN (03:46)
[2016-12-31] MEDS: INSULIN SLIDING SCALE (NOVOLOG) 1 VIAL SQ SCH (06:21)
[2016-12-31 07:23] LABS: INR 2.7 (0.82-1.09); PROTHROMBIN TIME (PATIENT) 30.3 SEC (9.98-11.88)
[2016-12-31] MEDS: ENOXAPARIN NA (PORCINE) 100 MG/1 ML DISP.SYRIN SQ SCH (09:20)
[2016-12-31 09:55] VITALS: BP 122/61
--- NOTE | 2016-12-31 13:04 | DS ---
Physical Exam: SUBJECTIVE: Patient seen and examined at bedside. Feels well. OBJECTIVE: Vital Signs Period Temp Pulse Resp BP Sys/Dominguez Pulse Ox Last 24 Hr 97.4 F-98.2 F 65-85 18-18 100-148/52-86 97-98 PHYSICAL EXAM GENERAL: The patient is awake, alert, and fully oriented, in no acute distress. HEAD: Normal with no signs of trauma. EYES: PERRL, extraocular movements intact, sclera anicteric, conjunctiva clear. No ptosis. LUNGS: Breath sounds equal, clear to auscultation bilaterally, no wheezes, no crackles, no accessory muscle use. HEART: Regular rate and rhythm, S1, S2 without murmur, rub or gallop. ABDOMEN: Soft, nontender, nondistended, normoactive bowel sounds, no guarding, no rebound LOWER EXTREMITIES: 2+ pulses, warm, well-perfused; RLE swelling almost completely resolved, no erythema, no warmth NEUROLOGICAL: Cranial nerves II through XII grossly intact. Normal speech, steady gait. PSYCH: Normal mood, normal affect. SKIN: Warm, dry, normal turgor, no rashes or lesions noted LABS Laboratory Results - last 24 hr 12/30/16 12/30/16 12/30/16 06:00 15:30 16:03 INR PTT (Actin FS) 39.6 H D POC Glucometer 109 Iron 33 TIBC 255 Iron Saturation 13 L 12/31/16 06:00 INR 2.70 H D PTT (Actin FS) POC Glucometer Iron TIBC Iron Saturation HOSPITAL COURSE: Date of Admission:12/25/16 Date of Discharge: 12/31/16 36 year old female 2011- while on control for polycystic ovary syndrome developed RLE DVT. Patient treated with 9 months of a/c with coumadin. Discovered to have Prothrombin Gene [id number] gene mutation at that time. May-2016 -- while on Lovenox -40 mg subq daily prophylaxis while , developed once again RLE DVT. Continued on FIXED DOSE of heparin--10,000 units BID through and delivered November 21. Had retained placenta, and had D & C on same day after delivery. Was maintained on fixed dose of 10,000 units BID . December 22- developed RLE swelling and presented now to ER with extensive DVT RLE involving right common femoral vein, superficial femoral vein,popliteal and posterior tibial veins in addition to the greater saphenous and deep femoral vein. Placed on IV heparin drip and transitioned to Lovenox on 12/30. Platelets 109 on admission, dropped next day to 106, but thereafter recovered, 192k on date of discharge. There was initial concern for HIT. HIT panel was high normal @0.424OD. Serotonin assay is pending. Patient was bridged to coumadin. Her INR at time of discharge is 2.7. The patient is no longer . Patient will be followed as an outpatient by Dr. Miles at [facility]. Patient will decide about long-term control options with Dr. Miles and with her OB Dr. Barroso. Dr. Earl Lopez provided the following guidance: In [place],2006: [phone] Zarina Rae al "Comparison of Fixed dose weight - adjusted unfractionated heparin and low molecular weight heparin for acute treatment of venous thromboembolism a review of multiple studies involving close to 700 patients using an initial fixed dose of heparin of 333U/kg followed by 250 U/kg resulted in a comparable recurrent DVT risk and bleeding risk similar to IV heparin. Recurrence at 3 months was 3.8% and bleeding risk - 1.1%. Since patient weighs 218 lbs this would suggest a fixed dose of heparin of 25, 000 units q12 h. (Patient was receiving 10,00 units q12H) The recurrece on heparin may therefore be related to an underdosing. [If] the patient is nursing, coumadin, and the NOAC's cannot be given. LMWH would be an option, but previously , LMWH ( lovenox) was too expensive for her to afford. After nursing patient can be bridged to coumadin or a NOAC for lifelong treatment. Of concern is the thrombocytopenia. HIT antibody and HANY will be obtained and need to be monitored. One last note, although the patient father had DVT's, he also had CAD and bypass surgery, It is unclear if he indeed has a prothrombin gene mutation or rather vascular events from cardiac disease.. Minutes to complete discharge: 35 Discharge Summary Reason For Visit: DEEP VEIN THROMBOSIS (DVT) Current Active Problems DVT (deep venous thrombosis) (Acute) Condition: Good - Home Medications Comprehensive Discharge Medication List: Ambulatory Orders Heparin - [(None)] 10,000 unit SQ BID 12/19/16 Vit #108/Iron/FA [ One Tablet] 1 each PO DAILY 11/13/16 This patient is new to me today: No Emergency Visit: Yes ED Registration Date: 12/25/16 Care time: The patient presented to the Emergency Department on the above date and was hospitalized for further evaluation of their emergent condition. Critical Care patient: No - Discharge Referral Referred to [facility] Med P.[facility].: No
--- NOTE | 2016-12-31 13:23 | PN ---
Progress Note (short form) - Note Progress Note: Patient seen in follow up today. No new complaints. Meds reviewed. Changed yesterday to LMWH as bridge to coumadin. Received last dose of LMWH this morning at 9 am. Current Medications Generic Name Dose Route Start Last Admin Trade Name Cynthia PRN Reason Stop Dose Admin Acetaminophen 650 mg 12/26/16 11:22 12/31/16 03:46 Tylenol - PO 650 mg Q6H PRN Administration PAIN 6-10 Enoxaparin Sodium 100 mg 12/30/16 13:00 12/31/16 09:20 Lovenox - SQ 100 mg BID EUGENE Administration Insulin Aspart 1 vial 12/25/16 22:39 12/31/16 06:21 Novolog Vial Sliding Scale - SQ Not Given BIDAC [facility] Protocol Warfarin Sodium 4 mg 12/31/16 18:00 Coumadin - PO DAILY@1800 EUGENE On examination. Last Vital Signs Temp Pulse Resp BP Pulse Ox 98.2 F 71 18 122/61 97 12/31/16 09:53 12/31/16 09:53 12/31/16 09:53 12/31/16 09:53 12/31/16 09:00 Lying comfortably in bed. Well hydrated, no pallor or icterus. Chest: breathing comfortably Abdomen: soft non-tender, no masses or organomegaly, distended - post-. Neuro: Alert and oriented. INR, PTT INR 2.70 (0.82-1.09) H D 12/31/16 06:00 CBC, BMP 12/30/16 10:55 12/30/16 10:55 Assessment: Young female with established history of recurrent RLE DVT, with confirmed prothrombin gene mutation. Now with recurrent event in post- setting, occurring while on unfractionated SC BID heparin at home. Previously did well on warfarin, and agree that resumption of warfarin is warranted, with heparin bridge pending achievement of therapeutic INR for 24-48 hours. Currently doing well on LMWH, with attainment of therapeutic INR this morning. In order to ensure >24 hours overlap prior to discontinuing LMWH, would administer last dose of Lovenox this evening prior to discharge. Patient to follow up on Sunday at [facility] thrombosis clinic for INR maintenance. Mild anemia noted. Likely iron deficiency. Consider empiric oral iron supplementation. Platelets recovering - NO suspicion for HIT.
[2016-12-31 14:16] VITALS: PULSE 70; TEMP 98.5
[2016-12-31] MEDS ORDERED: WARFARIN NA 2 MG TABLET (UD) PO SCH (18:00)
[2017-01-01 10:08] LABS: HIGH DOSE HEPARIN SRA < 1 % (0-20); LOW DOSE HEPARIN SRA 1 % (0-20)
--- NOTE | 2017-01-01 14:24 | PN ---
Progress Note (short form) - Note Progress Note: PAtients HANY is negative
[2017-01-02 00:07] LABS: A/G RATIO 0.8 (0.7-1.7); ALBUMIN 2.7 g/dL (2.9-4.4); ALPHA-1-GLOBULIN 0.4 g/dL (0.0-0.4); GAMMA GLOBULIN 0.9 g/dL (0.4-1.8); GLOBULIN, TOTAL 3.6 g/dL (2.2-3.9); M-SPIKE Not Observed g/dL (Not Observed); TOTAL PROTEIN 6.3 g/dL (6.0-8.5)
[2017-01-03 00:06] LABS: ALBUMIN FOR UPE 41.8 % (.); GAMMA GLOBULIN % 14.2 % (.); M-SPIKE, % Comment: % (Not Observed)
[2017-01-03 14:20] LABS: Hgb A2 2.2 % (0.7-3.1)
[2017-01-04 00:06] LABS: A/G RATIO 0.8 (0.7-1.7); ALBUMIN 2.8 g/dL (2.9-4.4); GLOBULIN, TOTAL 3.7 g/dL (2.2-3.9); M-SPIKE Not Observed g/dL (Not Observed); TOTAL PROTEIN 6.5 g/dL (6.0-8.5)
== END 2016-12-31 16:00 | disposition home or self-care (01) | DRG 301 ==
LOC: JER 19:07 → JERBED 21:01 → J7W 23:32
PROVIDERS: ADMIT Internal Medicine; ATTEND Nurse Practitioner Acute Care
DX: I82.411 Acute embolism and thrombosis of right femoral vein (principal); D64.9 Anemia, unspecified
CPT/HCPCS: 36415; 80048; 80053; 82542; 82728; 82747; 82784; 83021; 83540; 83550; 83735; 84155; 84156; 84157; 84165; 84439; 84443; 85014; 85025; 85044; 85610; 85660; 85730; 86022; 86334; 86850; 86900; 86901; 93971-TC; 99285-25; J1644

== ENCOUNTER 2023-09-13 11:46 | Emergency (ER) | payer OTHER ==
[2023-09-13 12:07] VITALS: RESP 18; BMI 44.2
[2023-09-13 17:29] VITALS: BP 148/84; PULSE 74; TEMP 98.1
== END 2023-09-13 17:00 | disposition home or self-care (01) ==
LOC: JER 11:46
DX: M25.572 Pain in left ankle and joints of left foot (principal); R22.42 Localized swelling, mass and lump, left lower limb
CPT/HCPCS: 73610-TC-LT-FY; 73630-TC-LT; 93971-TC; 99284-25